=== PATIENT | male | born 1965 | race Caucasian/White ===

== ENCOUNTER 2023-06-20 14:47 | Inpatient (IN) | payer OTHER ==
[~2023-06-20] VITALS: Ht 177.8 cm; Wt 113.0 kg
[2023-06-20] MEDS ORDERED: SODIUM CHLORIDE 0.9% 500 ML IV ONE (15:45)
[2023-06-20 16:00] VITALS: PULSE 70; RESP 10; O2SAT 97
[2023-06-20 16:03] LABS: Basophils # (auto) 0.1 10 ^3/uL (0-0.2); Basophils % (auto) 0.5 % (0.0-2.0); Eosinophils # (auto) 0.3 10 ^3/uL (0-0.8); Hematocrit 43.3 % (41.0-53.0); Hemoglobin 14.2 g/dL (13.5-17.5); Lymphocytes # (auto) 2.9 10 ^3/uL (0.4-5.4); Lymphocytes % (auto) 18.3 % (10.0-50.0); Mean Corpuscular Hemoglobin 27.8 pg (28.0-32.0); Mean Corpuscular Hgb Conc. 32.8 g/dL (32.0-36.0); Mean Corpuscular Volume 84.8 fL (80.0-100.0); Monocytes # (auto) 0.7 10 ^3/uL (0-1.3); Monocytes % (auto) 4.3 % (0.0-12.0); Neutrophils % (auto) 74.9 % (37.0-80.0); Nucleated Red Blood Cells % 0.1 %; Red Cell Distribution Width 14.8 % (11.8-14.3)
[2023-06-20 16:22] LABS: Alanine Aminotransferase 26 U/L (7-40); Albumin 4.8 g/dL (3.2-4.8); Alkaline Phosphatase 101 U/L (46-116); Anion Gap 8 (5-15); Aspartate Aminotransferase 15 U/L (13-40); BUN/Creatinine Ratio 13.8 (10.0-20.0); Blood Urea Nitrogen 16 mg/dL (9-23); Calcium 9.3 mg/dL (8.7-10.4); Carbon Dioxide 25 mmol/L (20-30); Chloride 107 mmol/L (98-107); Glucose 122 mg/dL (74-106); Magnesium 2.2 mg/dL (1.6-2.6); Potassium 4.1 mmol/L (3.5-5.1); Sodium 140 mmol/L (136-145)
[2023-06-20 16:23] LABS: Bilirubin, Total 0.4 mg/dL (0.2-1.0); Total Protein 7.3 g/dL (5.7-8.2)
[2023-06-20 16:36] LABS: INR 0.99 (0.9-1.15); Partial Thromboplastin Time 27.3 SEC (24.5-34.5); Prothrombin Time 10.4 sec (9.3-11.8)
[2023-06-20 20:05] VITALS: PULSE 71; RESP 13; O2SAT 98
[2023-06-20 20:11] LABS: Urine Bacteria NONE SEEN /hpf (None Seen); Urine Blood Negative /uL (Negative); Urine Clarity Clear (Clear); Urine Color Yellow (Yellow); Urine Mucus FEW (None Seen); Urine Protein, UAD Negative (Negative); Urine Specific Gravity 1.018 (1.001-1.035); Urine Urobilinogen Normal (Negative); Urine WBC 4 /hpf (0 - 3)
[2023-06-20] MEDS ORDERED: ONDANSETRON HCL 4 MG/2 ML VIAL IV PRN (21:15)
[2023-06-20] MEDS ORDERED: HYDROcodone-ACET 5/325MG TAB PO PRN (21:15)
[2023-06-20] MEDS ORDERED: DOCUSATE SOD 100 MG CAP PO PRN (21:15)
[2023-06-20] MEDS ORDERED: ACETAMINOPHEN 325 MG TAB PO PRN (21:15)
[2023-06-20] MEDS: SODIUM CHLOR 0.9% PF (SALINE LOCK) 10ML VIAL/SYR IV SCH (23:39)
[2023-06-21] VITALS (7 sets, daily range): BP systolic 104–139; BP diastolic 63–81; PULSE 72–91; RESP 16–19; TEMP 98–99.4; O2SAT 94–96
[2023-06-21] MEDS ORDERED: MORPHINE SULFATE INJ 2 MG/ml SYRG IV PRN
[2023-06-21] MEDS ORDERED: NITROGLYCERIN 0.4 MG SL TAB SL PRN
[2023-06-21 02:59] LABS: COVID19 ANTIGEN SOFIA FIA NEGATIVE (NEGATIVE)
[2023-06-21 05:42] LABS: Alanine Aminotransferase 18 U/L (7-40); Albumin 4.4 g/dL (3.2-4.8); Alkaline Phosphatase 84 U/L (46-116); Anion Gap 7 (5-15); Aspartate Aminotransferase 9 U/L (13-40); BUN/Creatinine Ratio 11.8 (10.0-20.0); Bilirubin, Total 0.4 mg/dL (0.2-1.0); Blood Urea Nitrogen 13 mg/dL (9-23); Calcium 9.1 mg/dL (8.7-10.4); Carbon Dioxide 27 mmol/L (20-30); Chloride 107 mmol/L (98-107); Glucose 103 mg/dL (74-106); Potassium 4.1 mmol/L (3.5-5.1); Sodium 141 mmol/L (136-145); Total Protein 6.9 g/dL (5.7-8.2)
[2023-06-21 05:51] LABS: Basophils # (auto) 0.1 10 ^3/uL (0-0.2); Basophils % (auto) 0.7 % (0.0-2.0); Eosinophils # (auto) 0.3 10 ^3/uL (0-0.8); Eosinophils % (auto) 2.9 % (0.0-7.0); Hematocrit 39.2 % (41.0-53.0); Hemoglobin 13.2 g/dL (13.5-17.5); Lymphocytes # (auto) 1.8 10 ^3/uL (0.4-5.4); Lymphocytes % (auto) 19.9 % (10.0-50.0); Mean Corpuscular Hemoglobin 28.7 pg (28.0-32.0); Mean Corpuscular Hgb Conc. 33.6 g/dL (32.0-36.0); Mean Corpuscular Volume 85.3 fL (80.0-100.0); Monocytes # (auto) 0.6 10 ^3/uL (0-1.3); Monocytes % (auto) 6.6 % (0.0-12.0); Neutrophils # (auto) 6.4 10 ^3/uL (1.6-8.6); Neutrophils % (auto) 69.9 % (37.0-80.0); Nucleated Red Blood Cells % 0.1 %; Red Blood Cells 4.59 10^6/uL (4.5-5.90); Red Cell Distribution Width 14.6 % (11.8-14.3); White Blood Cell 9.2 10^3/uL (4.4-10.8)
[2023-06-21] MEDS ORDERED: SERT-377 (06:11)
[2023-06-21] MEDS ORDERED: FUR20T PO (06:11)
[2023-06-21] MEDS ORDERED: ATEN100T PO (06:11)
[2023-06-21] MEDS: SODIUM CHLOR 0.9% PF (SALINE LOCK) 10ML VIAL/SYR IV SCH ×3 (06:42→23:29)
[2023-06-21] MEDS: levoFLOXacin 500MG 100 ML IV SCH (11:03)
[2023-06-21 13:20] LABS: Amphetamine Screen, Urine Neg (NEGATIVE); Barbiturate Scree,Urine Neg (NEGATIVE); Benzodiazephine Screen, Urine Neg (NEGATIVE); Cannabinoid Screen, Urine Neg (NEGATIVE); Cocaine Screen, Urine Neg (NEGATIVE); Opiate Scree,Urine Neg (NEGATIVE); Phencyclidine Screen, Urine Neg (NEGATIVE)
[2023-06-21] MEDS ORDERED: SERT-376 PO (18:33)
[2023-06-22] VITALS (7 sets, daily range): BP systolic 103–146; BP diastolic 61–89; PULSE 84–123; RESP 16–19; TEMP 97.2–98.1; O2SAT 95–98
[2023-06-22] MEDS: SODIUM CHLOR 0.9% PF (SALINE LOCK) 10ML VIAL/SYR IV SCH ×3 (06:09→21:31)
[2023-06-22] MEDS: levoFLOXacin 500MG 100 ML IV SCH (10:35)
[2023-06-22] MEDS: SERTRALINE HCL 50 MG TAB PO SCH (16:58)
[2023-06-22] MEDS: FUROSEMIDE 20 MG TAB PO SCH (16:58)
[2023-06-23] VITALS (7 sets, daily range): BP systolic 113–158; BP diastolic 59–90; PULSE 82–101; RESP 16–21; TEMP 37; O2SAT 95–100
[2023-06-23] MEDS: SODIUM CHLOR 0.9% PF (SALINE LOCK) 10ML VIAL/SYR IV SCH ×2 (06:22→14:00)
[2023-06-23] MEDS ORDERED: ADENOSINE 95 MG in GIVE UN-DILUTED 0 ML IV STA (07:17)
[2023-06-23] MEDS: levoFLOXacin 500MG 100 ML IV SCH (09:00)
[2023-06-23] MEDS ORDERED: SERTRALINE HCL 50 MG TAB PO SCH (10:00)
[2023-06-23] MEDS ORDERED: FUROSEMIDE 20 MG TAB PO SCH (10:00)
[2023-06-23] MEDS: FUROSEMIDE 20 MG TAB PO SCH (11:41)
[2023-06-23] MEDS: SERTRALINE HCL 50 MG TAB PO SCH (11:41)
[2023-06-23] MEDS ORDERED: LEVO500T91 PO (11:57)
[2023-06-23 17:52] LABS: Magnesium 2.1 mg/dL (1.6-2.6)
[2023-06-23] MEDS ORDERED: LORazepam 2MG/ML-1ML VIAL IV PRN (22:30)
[2023-06-24] VITALS (11 sets, daily range): BP systolic 117–168; BP diastolic 46–84; PULSE 85–119; RESP 11–19; TEMP 97.6–98.3; O2SAT 94–99
[2023-06-24] MEDS: SODIUM CHLOR 0.9% PF (SALINE LOCK) 10ML VIAL/SYR IV SCH ×4 (05:59→22:00)
[2023-06-24 06:19] LABS: Basophils # (auto) 0 10 ^3/uL (0-0.2); Basophils % (auto) 0.6 % (0.0-2.0); Eosinophils # (auto) 0.3 10 ^3/uL (0-0.8); Eosinophils % (auto) 3.8 % (0.0-7.0); Hemoglobin 14.2 g/dL (13.5-17.5); Lymphocytes # (auto) 1.4 10 ^3/uL (0.4-5.4); Lymphocytes % (auto) 16.8 % (10.0-50.0); Mean Corpuscular Hemoglobin 28.3 pg (28.0-32.0); Mean Corpuscular Hgb Conc. 32.9 g/dL (32.0-36.0); Monocytes # (auto) 0.5 10 ^3/uL (0-1.3); Monocytes % (auto) 6.2 % (0.0-12.0); Neutrophils # (auto) 5.8 10 ^3/uL (1.6-8.6); Neutrophils % (auto) 72.6 % (37.0-80.0); Red Cell Distribution Width 14.5 % (11.8-14.3); White Blood Cell 8.1 10^3/uL (4.4-10.8)
[2023-06-24 06:27] LABS: Chloride 108 mmol/L (98-107); Potassium 4.1 mmol/L (3.5-5.1); Sodium 140 mmol/L (136-145)
[2023-06-24 06:28] LABS: Anion Gap 4 (5-15); Calcium 8.9 mg/dL (8.7-10.4); Carbon Dioxide 28 mmol/L (20-30)
[2023-06-24 06:33] LABS: BUN/Creatinine Ratio 12.7 (10.0-20.0); Blood Urea Nitrogen 14 mg/dL (9-23); Glucose 108 mg/dL (74-106); INR 1.01 (0.9-1.15); Partial Thromboplastin Time 29.7 SEC (24.5-34.5); Prothrombin Time 10.6 sec (9.3-11.8)
[2023-06-24] MEDS ORDERED: IODIXANOL 320MG/ML 100ML BTL IV ONE ×2 (07:40→08:00)
[2023-06-24] MEDS ORDERED: LIDOCAINE 2%HCL (LOCAL ANESTH.) INJ 20ML MDV ONE (07:40)
[2023-06-24] MEDS ORDERED: VERAPAMIL 2.5MG/ML INJ 2ML VIAL IV ONE (07:42)
[2023-06-24] MEDS ORDERED: fentaNYL CITRATE 100 MCG/2 ML VL ONE (07:42)
[2023-06-24] MEDS ORDERED: HEPARIN SODIUM (PORCINE) 5000 UNITS/ML 1ML VIAL ONE (07:42)
[2023-06-24] MEDS ORDERED: ANGIOMAX 250 MG VIAL IV ONE (07:42)
[2023-06-24] MEDS ORDERED: SODIUM CHL 0.9% 0 ML ONE (07:43)
[2023-06-24] MEDS ORDERED: MIDAZOLAM HCL 2MG/2ML 2ml VIAL (1mg/ml) ONE (07:43)
[2023-06-24] MEDS ORDERED: ASPirin 81 mg TAB PO SCH (10:00)
[2023-06-24] MEDS: FUROSEMIDE 20 MG TAB PO SCH (10:00)
[2023-06-24] MEDS: SERTRALINE HCL 50 MG TAB PO SCH (10:00)
[2023-06-24] MEDS: levoFLOXacin 500MG 100 ML IV SCH (10:00)
[2023-06-25 05:00] VITALS: BP 131/79; PULSE 89; RESP 18; TEMP 98.1; O2SAT 96
[2023-06-25] MEDS: SODIUM CHLOR 0.9% PF (SALINE LOCK) 10ML VIAL/SYR IV SCH (06:00)
[2023-06-25 08:00] VITALS: BP 134/96; PULSE 14; RESP 98; TEMP 97.8
[2023-06-25 08:48] VITALS: BP 134/96; PULSE 98; RESP 14; TEMP 97.8; O2SAT 98
[2023-06-25 09:00] VITALS: BP 134/96; PULSE 98; RESP 14; TEMP 97.8; O2SAT 98
== END 2023-06-25 09:48 | disposition home or self-care (01) | DRG 872 ==
LOC: ER 14:47 → EDBD 14:47 → TELE 23:51 → TELE-WESTW 06-21 05:19
PROVIDERS: ADMIT Nurse Practitioner Family; ATTEND Family Medicine
PROC: 4A023N7 Measurement of Cardiac Sampling and Pressure, Left Heart, Percutaneous Approach (ICD-10-PCS; principal; 2023-06-24)
PROC: B211YZZ Fluoroscopy of Multiple Coronary Arteries using Other Contrast (ICD-10-PCS; 2023-06-24)
PROC: B215YZZ Fluoroscopy of Left Heart using Other Contrast (ICD-10-PCS; 2023-06-24)
DX: A41.9 Sepsis, unspecified organism (principal); N39.0 Urinary tract infection, site not specified; S09.90XA Unspecified injury of head, initial encounter; I25.10 Atherosclerotic heart disease of native coronary artery without angina pectoris; S00.12XA Contusion of left eyelid and periocular area, initial encounter; F32.A Depression, unspecified; E66.9 Obesity, unspecified; I10 Essential (primary) hypertension; W18.39XA Other fall on same level, initial encounter; Z20.822 Contact with and (suspected) exposure to COVID-19; Z88.0 Allergy status to penicillin; Z82.49 Family history of ischemic heart disease and other diseases of the circulatory system; Z90.49 Acquired absence of other specified parts of digestive tract; Z93.3 Colostomy status; Y93.89 Activity, other specified; Y92.89 Other specified places as the place of occurrence of the external cause; Y99.8 Other external cause status; Z68.35 Body mass index [BMI] 35.0-35.9, adult
CPT/HCPCS: 36415; 70450; 70551; 71045; 78452; 80048; 80053; 80061; 80307; 80320; 81001; 82962; 83036; 83735; 84443; 84484; 85025; 85379; 85610; 85730; 87426; 93005; 93017; 93306; 93458; 93886; 95819; 99152; 99291; G0378; J0153; J1956; J2250; Q9967